=== PATIENT | female | born 1985 | race Two or more races ===

== ENCOUNTER 2019-07-24 18:30 | Emergency (ER) | payer MEDICAID ==
[~2019-07-24] VITALS: Ht 172.7 cm; Wt 75.0 kg
[2019-07-24] MEDS ORDERED: CEFTRIAXONE SODIUM 250 MG/VIAL IM ONE (21:15)
[2019-07-24] MEDS ORDERED: LIDOCAINE HCL 1% 20ML VIAL (Pyxis) INJ INFIL ONE (21:15)
[2019-07-24] MEDS ORDERED: AZITHROMYCIN 500 MG TABLET PO ONE (21:15)
[2019-07-24 21:35] LABS: CLARITY URINE CLEAR (CLEAR); COLOR URINE DARK YELLOW (YELLOW); KETONES URINE TRACE (NEGATIVE); LEUKOCYTE ESTERASE URINE NEGATIVE (NEGATIVE); NITRITE URINE NEGATIVE (NEGATIVE); OCCULT BLOOD URINE NEGATIVE (NEGATIVE); PH URINE 5.5 (4.5-8.0); PROTEIN URINE TRACE (NEGATIVE); SPECIFIC GRAVITY URINE 1.029 (1.005-1.030)
[2019-07-24 22:22] VITALS: BP 127/71
== END 2019-07-24 22:23 | disposition home or self-care (01) ==
LOC: ER 18:30
DX: A54.9 Gonococcal infection, unspecified (principal); Z20.2 Contact with and (suspected) exposure to infections with a predominantly sexual mode of transmission; Z11.3 Encounter for screening for infections with a predominantly sexual mode of transmission; N89.8 Other specified noninflammatory disorders of vagina; F17.200 Nicotine dependence, unspecified, uncomplicated; Z90.49 Acquired absence of other specified parts of digestive tract; Z98.84 Bariatric surgery status
CPT/HCPCS: 81003; 81025; 96372; 99283; J0696; J3490

== ENCOUNTER 2019-08-03 12:49 | Emergency (ER) | payer MEDICAID ==
[~2019-08-03] VITALS: Ht 172.7 cm; Wt 73.0 kg
[2019-08-03] MEDS ORDERED: HYDROCODONE/ACETAMINOPHEN 5/325MG TABLET PO ONE (14:30)
[2019-08-03 16:22] VITALS: BP 121/67
== END 2019-08-03 16:25 | disposition home or self-care (01) ==
LOC: ER 12:55
DX: N61.1 Abscess of the breast and nipple (principal); Z98.890 Other specified postprocedural states
CPT/HCPCS: 76641; 99284

== ENCOUNTER 2020-07-03 05:11 | Emergency (ER) | payer MEDICAID ==
[~2020-07-03] VITALS: Ht 172.7 cm; Wt 82.0 kg
[2020-07-03] MEDS ORDERED: FLUCONAZOLE 150MG TABLET PO SCH (06:30)
[2020-07-03] MEDS ORDERED: CEFTRIAXONE 1 G PREMIX 50 ML IV ONE (06:30)
[2020-07-03] MEDS ORDERED: FLUCONAZOLE 100MG TABLET PO ONE (06:30)
[2020-07-03] MEDS ORDERED: AZITHROMYCIN 500 MG TABLET PO ONE (06:30)
[2020-07-03 06:47] LABS: CLARITY URINE CLOUDY (CLEAR); COLOR URINE YELLOW (YELLOW); KETONES URINE NEGATIVE (NEGATIVE); LEUKOCYTE ESTERASE URINE 1+ (NEGATIVE); NITRITE URINE NEGATIVE (NEGATIVE); OCCULT BLOOD URINE NEGATIVE (NEGATIVE); PROTEIN URINE 1+ (NEGATIVE); SPECIFIC GRAVITY URINE 1.029 (1.005-1.030)
[2020-07-03] MEDS ORDERED: CEFTRIAXONE 1,000 MG in DEXTROSE 5% WATER 50 ML IV NR (07:15)
[2020-07-03 08:08] VITALS: BP 111/70
[2020-07-06 04:11] LABS: NEISSERIA GONORRHOEAE NAA Positive (Negative)
== END 2020-07-03 08:09 | disposition home or self-care (01) ==
LOC: ER 05:11
DX: Z20.2 Contact with and (suspected) exposure to infections with a predominantly sexual mode of transmission (principal); R10.2 Pelvic and perineal pain; E11.9 Type 2 diabetes mellitus without complications; Z98.84 Bariatric surgery status; Z98.890 Other specified postprocedural states
CPT/HCPCS: 81003; 87086; 87491; 87591; 96365; 99284; J0696; J7060

== ENCOUNTER 2021-04-04 21:11 | Emergency (ER) | payer MEDICAID ==
[~2021-04-04] VITALS: Ht 172.7 cm; Wt 82.0 kg
[2021-04-05] MEDS ORDERED: LIDOCAINE HCL 1% 20ML VIAL (Pyxis) INJ INFIL ONE (00:45)
[2021-04-05] MEDS ORDERED: CEFTRIAXONE SODIUM 500 MG/VIAL IM ONE (00:45)
[2021-04-05] MEDS ORDERED: DOXYCYCLINE HYCLATE 100MG CAPSULE PO ONE (00:45)
[2021-04-05] MEDS ORDERED: TOPUD MT (05:28)
[2021-04-05] MEDS ORDERED: DOXY100T2 MT (05:28)
[2021-04-05 05:47] LABS: CLARITY URINE CLOUDY (CLEAR); COLOR URINE YELLOW (YELLOW); KETONES URINE TRACE (NEGATIVE); LEUKOCYTE ESTERASE URINE 1+ (NEGATIVE); NITRITE URINE NEGATIVE (NEGATIVE); OCCULT BLOOD URINE NEGATIVE (NEGATIVE); PH URINE 5.5 (4.5-8.0); PROTEIN URINE TRACE (NEGATIVE); SPECIFIC GRAVITY URINE 1.026 (1.005-1.030)
[2021-04-05 06:30] VITALS: BP 142/78
[2021-04-05] MEDS ORDERED: METR500T MT (06:31)
[2021-04-07 04:07] LABS: NEISSERIA GONORRHOEAE NAA Negative (Negative)
== END 2021-04-05 06:43 | disposition home or self-care (01) ==
LOC: ER 21:11
DX: N73.9 Female pelvic inflammatory disease, unspecified (principal); E11.9 Type 2 diabetes mellitus without complications; Z20.2 Contact with and (suspected) exposure to infections with a predominantly sexual mode of transmission
CPT/HCPCS: 76856; 81003; 81025; 87210; 87491; 87591; 96372; 99284; J0696; J3490

== ENCOUNTER 2021-05-01 01:49 | Inpatient (IN) | payer MEDICAID ==
[~2021-05-01] VITALS: Ht 167.6 cm; Wt 82.7 kg
[~2021-05-01 01:49] MED LIST: DOXY100T2 MT; METR500T MT; TOPUD MT
[2021-05-01] MEDS ORDERED: ONDANSETRON HCL 4MG/2ML INJ IV STA (04:45)
[2021-05-01] MEDS ORDERED: SODIUM CHLORIDE 0.9% 1,000 ML IV ONE (04:45)
[2021-05-01] MEDS ORDERED: KETOROLAC 30MG/ML VIAL IV STA (04:45)
[2021-05-01 06:00] LABS: CHLORIDE 108 mEq/L (98-107)
[2021-05-01 06:05] LABS: BASOPHILS % 0.3 % (0.0-2.0); EOSINOPHILS % 0.3 % (0.0-5.0); LYMPHOCYTES % 34.5 % (20.0-50.0); MEAN CORPUSCULAR HEMOGLOBIN 18.6 pg (28.0-32.0); MEAN CORPUSCULAR VOLUME 62.3 fL (81.0-99.0); MEAN PLATELET VOLUME 8.4 fl (7.4-10.4); MONOCYTES % 7.3 % (2.0-8.0); NEUTROPHILS % 57.6 % (40.0-76.0); PLATELET 154 x1000/uL (130-400); RED BLOOD CELL COUNT 3.33 mill/uL (4.2-5.4); RED CELL DISTRIBUTION WIDTH 18.8 % (11.6-14.6)
[2021-05-01 06:07] LABS: PROTHROMBIN TIME 10.3 sec (9.6-11.0)
[2021-05-01 06:31] LABS: HCG SCREEN NEGATIVE
[2021-05-01 06:33] LABS: KETONES URINE TRACE (NEGATIVE); LEUKOCYTE ESTERASE URINE 2+ (NEGATIVE); NITRITE URINE NEGATIVE (NEGATIVE); OCCULT BLOOD URINE 2+ (NEGATIVE); PROTEIN URINE 2+ (NEGATIVE); SPECIFIC GRAVITY URINE 1.025 (1.005-1.030)
[2021-05-01] MEDS ORDERED: MORPHINE SULFATE 4 MG/ML CPJ (NOT FOR IM USE) IV ONE (06:45)
[2021-05-01 06:47] LABS: HEMOGLOBIN. 6.2 g/dL (12.0-16.0)
[2021-05-01 06:48] LABS: HEMATOCRIT. 20.7 % (36.0-48.0)
[2021-05-01] MEDS ORDERED: CEFTRIAXONE 1 G PREMIX 50 ML IV ONE (07:00)
[2021-05-01] MEDS ORDERED: POTASSIUM CHLORIDE 20MEQ TABLET SR PO NR (07:00)
[2021-05-01 07:03] LABS: CLARITY URINE HAZY (CLEAR); COLOR URINE DARK YELLOW (YELLOW)
[2021-05-01 07:14] LABS: TOTAL IRON BINDING CAPACITY 477 ug/dL (250-450)
[2021-05-01 07:47] LABS: PLATELET ESTIMATE NORMAL
[2021-05-01] MEDS ORDERED: CEFTRIAXONE 1 G PREMIX 50 ML IV SCH (09:00)
[2021-05-01 09:38] LABS: HEMOGLOBIN 5.3 g/dL (12.0-16.0)
[2021-05-01] MEDS: DOCUSATE SODIUM 100MG CAPSULE PO SCH (11:13)
[2021-05-01] MEDS: FERROUS SULFATE 325MG TABLET PO SCH ×2 (11:13→13:22)
[2021-05-01 17:21] LABS: UCG SCREEN NEGATIVE
[2021-05-01 17:31] LABS: *BARBITURATES SCREEN URINE NEGATIVE (NEGATIVE); *BENZODIAZEPINES SCREEN URINE NEGATIVE (NEGATIVE); *COCAINE SCREEN URINE NEGATIVE (NEGATIVE); CANNABINOID URINE SCREEN NEGATIVE (NEGATIVE); METHADONE URINE SCREEN NEGATIVE (NEGATIVE)
[2021-05-01 17:42] LABS: *AMPHETAMINES SCREEN URINE PRESUMTIVE POSITIVE (NEGATIVE); OPIATES URINE SCREEN PRESUMTIVE POSITIVE (NEGATIVE); PHENCYCLIDINE URINE SCREEN PRESUMTIVE POSITIVE (NEGATIVE)
[2021-05-01] MEDS ORDERED: NALOXONE HCL 0.4MG/ML VIAL IV PRN (17:45)
[2021-05-01] MEDS: MORPHINE SULFATE 2 MG/ML CPJ (NOT FOR IM USE) IV PRN ×2 (17:57→23:34)
[2021-05-01 22:10] VITALS: BP 101/63
[2021-05-01 22:19] VITALS: BP 108/57
[2021-05-01 22:40] VITALS: BP 108/66
[2021-05-01 23:46] VITALS: BP 104/72
[2021-05-02] VITALS: BP 104/72
[2021-05-02] MEDS ORDERED: *PATIENT'S OWN MEDICATION STORAGE XX SCH (00:45)
[2021-05-02 01:32] LABS: HEMATOCRIT 25.1 % (36.0-48.0); HEMOGLOBIN 7.7 g/dL (12.0-16.0)
[2021-05-02 01:42] LABS: PROTHROMBIN TIME 10.4 sec (9.6-11.0)
[2021-05-02 04:00] VITALS: BP 124/79
[2021-05-02] MEDS ORDERED: DEXTROSE 50% WATER 50ML SYRINGE IV PRN (05:45)
[2021-05-02] MEDS: MORPHINE SULFATE 2 MG/ML CPJ (NOT FOR IM USE) IV PRN ×2 (06:13→12:23)
[2021-05-02] MEDS: BLOOD SUGAR DIAGNOSTIC STRIP TEST SCH ×4 (07:34→21:40)
[2021-05-02] MEDS: INSULIN LISPRO 100 UNITS/ML SUBCUT SCH ×4 (07:47→21:00)
[2021-05-02 07:53] VITALS: BP 101/64
[2021-05-02] MEDS ORDERED: PNEUMOCOCCAL 23-VAL P-SAC VAC 0.5 ML IM ONE (08:00)
[2021-05-02 08:49] LABS: BASOPHILS % 0.2 % (0.0-2.0); EOSINOPHILS % 1.1 % (0.0-5.0); HEMATOCRIT. 23.6 % (36.0-48.0); HEMOGLOBIN. 7.4 g/dL (12.0-16.0); LYMPHOCYTES % 32.8 % (20.0-50.0); MEAN CORPUSCULAR HEMOGLOBIN 21.1 pg (28.0-32.0); MEAN CORPUSCULAR VOLUME 67.7 fL (81.0-99.0); MEAN PLATELET VOLUME 8.5 fl (7.4-10.4); MONOCYTES % 10.1 % (2.0-8.0); NEUTROPHILS % 55.8 % (40.0-76.0); PLATELET 114 x1000/uL (130-400); RED BLOOD CELL COUNT 3.49 mill/uL (4.2-5.4); RED CELL DISTRIBUTION WIDTH 25.2 % (11.6-14.6)
[2021-05-02 08:58] LABS: CHLORIDE 109 mEq/L (98-107)
[2021-05-02] MEDS: CEFTRIAXONE 1,000 MG in DEXTROSE 5% WATER 50 ML IV SCH (09:11)
[2021-05-02] MEDS: FERROUS SULFATE 325MG TABLET PO SCH ×3 (09:12→18:16)
[2021-05-02] MEDS: DOCUSATE SODIUM 100MG CAPSULE PO SCH ×2 (09:12→18:16)
[2021-05-02] MEDS ORDERED: INFLUENZA VACCINE 05/PF 0.5 ML SYRINGE IM ONE (10:00)
[2021-05-02] MEDS ORDERED: POTASSIUM CHLORIDE 20MEQ TABLET SR PO NR (11:00)
[2021-05-02] MEDS: ONDANSETRON HCL 4MG/2ML INJ IV PRN ×2 (11:22→18:16)
[2021-05-02] MEDS ORDERED: DOCU-150 PO (11:51)
[2021-05-02] MEDS ORDERED: FERR-63 PO (11:51)
[2021-05-02] MEDS ORDERED: LEVO500T89 MT (11:51)
[2021-05-02 12:00] VITALS: BP 95/67
[2021-05-02 16:00] VITALS: BP 121/81
[2021-05-02] MEDS: TRAMADOL 50MG TABLET PO PRN (18:56)
[2021-05-02 20:00] VITALS: BP 117/83
[2021-05-03] VITALS: BP 126/82
[2021-05-03] MEDS: TRAMADOL 50MG TABLET PO PRN ×3 (01:13→17:59)
[2021-05-03 04:00] VITALS: BP 121/90
[2021-05-03] MEDS: BLOOD SUGAR DIAGNOSTIC STRIP TEST SCH ×4 (07:46→20:46)
[2021-05-03] MEDS: INSULIN LISPRO 100 UNITS/ML SUBCUT SCH ×4 (07:47→20:51)
[2021-05-03 08:00] VITALS: BP 122/78
[2021-05-03 08:18] LABS: BASOPHILS % 0.3 % (0.0-2.0); EOSINOPHILS % 1.4 % (0.0-5.0); HEMATOCRIT. 25.4 % (36.0-48.0); HEMOGLOBIN. 7.8 g/dL (12.0-16.0); LYMPHOCYTES % 31.7 % (20.0-50.0); MEAN CORPUSCULAR HEMOGLOBIN 21.1 pg (28.0-32.0); MEAN CORPUSCULAR VOLUME 68.7 fL (81.0-99.0); MEAN PLATELET VOLUME 8.5 fl (7.4-10.4); MONOCYTES % 10.5 % (2.0-8.0); NEUTROPHILS % 56.1 % (40.0-76.0); PLATELET 143 x1000/uL (130-400); RED CELL DISTRIBUTION WIDTH 26.2 % (11.6-14.6)
[2021-05-03 08:54] LABS: CHLORIDE 109 mEq/L (98-107)
[2021-05-03] MEDS: CEFTRIAXONE 1,000 MG in DEXTROSE 5% WATER 50 ML IV SCH (09:33)
[2021-05-03] MEDS: ONDANSETRON HCL 4MG/2ML INJ IV PRN (09:33)
[2021-05-03] MEDS: DOCUSATE SODIUM 100MG CAPSULE PO SCH ×2 (09:33→17:59)
[2021-05-03] MEDS: FERROUS SULFATE 325MG TABLET PO SCH ×3 (09:33→17:59)
[2021-05-03 12:00] VITALS: BP 111/60
[2021-05-03 16:00] VITALS: BP 107/66
[2021-05-03] MEDS: MEROPENEM 1,000 MG in SODIUM CHLORIDE 0.9% 100 ML IV SCH (17:59)
[2021-05-03 20:00] VITALS: BP 120/84
[2021-05-04] VITALS: BP 122/84
[2021-05-04] MEDS: MEROPENEM 1,000 MG in SODIUM CHLORIDE 0.9% 100 ML IV SCH ×3 (03:43→17:51)
[2021-05-04] MEDS: TRAMADOL 50MG TABLET PO PRN ×2 (03:43→09:49)
[2021-05-04 04:00] VITALS: BP 107/59
[2021-05-04] MEDS: BLOOD SUGAR DIAGNOSTIC STRIP TEST SCH ×4 (07:20→21:00)
[2021-05-04] MEDS: INSULIN LISPRO 100 UNITS/ML SUBCUT SCH ×4 (07:50→21:00)
[2021-05-04 08:00] VITALS: BP 107/68
[2021-05-04] MEDS: FERROUS SULFATE 325MG TABLET PO SCH ×3 (09:48→17:51)
[2021-05-04] MEDS: DOCUSATE SODIUM 100MG CAPSULE PO SCH ×2 (09:49→17:51)
[2021-05-04 12:00] VITALS: BP 113/70
[2021-05-04 16:00] VITALS: BP 110/70
[2021-05-04 17:35] LABS: BASOPHILS % 0.3 % (0.0-2.0); HEMATOCRIT. 27.6 % (36.0-48.0); HEMOGLOBIN. 8.6 g/dL (12.0-16.0); LYMPHOCYTES % 20.3 % (20.0-50.0); MEAN CORPUSCULAR HEMOGLOBIN 21.2 pg (28.0-32.0); MEAN PLATELET VOLUME 8.5 fl (7.4-10.4); MONOCYTES % 8.6 % (2.0-8.0); NEUTROPHILS % 69.8 % (40.0-76.0); PLATELET 229 x1000/uL (130-400); RED BLOOD CELL COUNT 4.05 mill/uL (4.2-5.4); RED CELL DISTRIBUTION WIDTH 26.8 % (11.6-14.6)
[2021-05-04 17:40] LABS: CHLORIDE 106 mEq/L (98-107)
[2021-05-04 20:00] VITALS: BP 130/82
[2021-05-05] VITALS: BP 102/59
[2021-05-05] MEDS: MEROPENEM 1,000 MG in SODIUM CHLORIDE 0.9% 100 ML IV SCH ×3 (03:21→17:16)
[2021-05-05 04:00] VITALS: BP 104/69
[2021-05-05] MEDS: ONDANSETRON HCL 4MG/2ML INJ IV PRN (04:27)
[2021-05-05] MEDS: INSULIN LISPRO 100 UNITS/ML SUBCUT SCH ×4 (06:42→17:16)
[2021-05-05] MEDS: BLOOD SUGAR DIAGNOSTIC STRIP TEST SCH ×4 (06:42→21:00)
[2021-05-05 08:00] VITALS: BP 110/68
[2021-05-05 08:03] LABS: BASOPHILS % 0.2 % (0.0-2.0); HEMATOCRIT. 28.4 % (36.0-48.0); HEMOGLOBIN. 8.9 g/dL (12.0-16.0); LYMPHOCYTES % 17.9 % (20.0-50.0); MEAN CORPUSCULAR HEMOGLOBIN 21.3 pg (28.0-32.0); MEAN CORPUSCULAR VOLUME 68.3 fL (81.0-99.0); MEAN PLATELET VOLUME 7.7 fl (7.4-10.4); MONOCYTES % 10.5 % (2.0-8.0); NEUTROPHILS % 70.4 % (40.0-76.0); PLATELET 281 x1000/uL (130-400); RED BLOOD CELL COUNT 4.15 mill/uL (4.2-5.4); RED CELL DISTRIBUTION WIDTH 28.2 % (11.6-14.6)
[2021-05-05 08:14] LABS: CHLORIDE 106 mEq/L (98-107)
[2021-05-05] MEDS: DOCUSATE SODIUM 100MG CAPSULE PO SCH ×2 (09:12→17:16)
[2021-05-05] MEDS: FERROUS SULFATE 325MG TABLET PO SCH ×3 (09:12→17:16)
[2021-05-05 12:00] VITALS: BP 103/64
[2021-05-05 16:00] VITALS: BP 127/80
[2021-05-05 20:00] VITALS: BP 123/76
[2021-05-06] VITALS: BP 109/64
[2021-05-06] MEDS: MEROPENEM 1,000 MG in SODIUM CHLORIDE 0.9% 100 ML IV SCH ×3 (01:12→17:48)
[2021-05-06 04:00] VITALS: BP 107/62
[2021-05-06] MEDS: BLOOD SUGAR DIAGNOSTIC STRIP TEST SCH (07:45)
[2021-05-06] MEDS: INSULIN LISPRO 100 UNITS/ML SUBCUT SCH (07:45)
[2021-05-06 08:00] VITALS: BP 105/61
[2021-05-06] MEDS: DOCUSATE SODIUM 100MG CAPSULE PO SCH ×2 (08:26→17:48)
[2021-05-06] MEDS: FERROUS SULFATE 325MG TABLET PO SCH ×3 (08:26→17:48)
[2021-05-06 12:00] VITALS: BP 110/71
[2021-05-06 16:00] VITALS: BP 105/66
[2021-05-06 17:56] VITALS: BP 110/66
[2021-05-06] MEDS: TRAMADOL 50MG TABLET PO PRN (17:56)
[2021-05-09 15:06] LABS: HIV 1 ABS Indeterminate (Negative); HIV 2 ABS Negative (Negative); HIV SCREEN 4G Reactive (Non Reactive); INTERPRETATION HIV-1 Indet. (.)
== END 2021-05-06 18:45 | disposition left against medical advice (07) | DRG 720 ==
LOC: ER 01:49 → MICUSO 07:35 → EDBEDREQSVC 10:28 → 6EST 20:06
PROVIDERS: ADMIT Internal Medicine; ATTEND Internal Medicine
PROC: 30233N1 Transfusion of Nonautologous Red Blood Cells into Peripheral Vein, Percutaneous Approach (ICD-10-PCS; principal; 2021-05-01)
DX: A41.51 Sepsis due to Escherichia coli [E. coli] (principal); E11.649 Type 2 diabetes mellitus with hypoglycemia without coma; E44.0 Moderate protein-calorie malnutrition; E87.8 Other disorders of electrolyte and fluid balance, not elsewhere classified; N12 Tubulo-interstitial nephritis, not specified as acute or chronic; D50.9 Iron deficiency anemia, unspecified; F16.90 Hallucinogen use, unspecified, uncomplicated; N39.0 Urinary tract infection, site not specified; E87.6 Hypokalemia; D25.9 Leiomyoma of uterus, unspecified; N92.0 Excessive and frequent menstruation with regular cycle; N83.201 Unspecified ovarian cyst, right side; Z16.12 Extended spectrum beta lactamase (ESBL) resistance; Z20.822 Contact with and (suspected) exposure to COVID-19; Z68.29 Body mass index [BMI] 29.0-29.9, adult
CPT/HCPCS: 36415; 76856; 80048; 80053; 80305; 81003; 81025; 82962; 83540; 83550; 84703; 85014; 85018; 85025; 85049; 85384; 86701; 86702; 86850; 86900; 86920; 87077; 87186; 87389; 87426; 87535; 90686; 90732; 99285; J0696; J1885; J2185; J2270; J2405; J7030; J7040; J7050; J7060; P9016

== ENCOUNTER 2021-12-10 05:52 | Emergency (ER) | payer MEDICAID, OTHER ==
[~2021-12-10] VITALS: Ht 172.7 cm; Wt 80.4 kg
[~2021-12-10 05:52] MED LIST changes: +DOCU-150 PO; +FERR-63 PO; +LEVO500T89 MT
[2021-12-10 05:54] VITALS: BP 131/73
[2021-12-10] MEDS ORDERED: LIDOCAINE HCL/PF 1% 10 MG/ML 5ML VIAL INFIL ONE (07:00)
== END 2021-12-10 09:54 | disposition home or self-care (01) ==
LOC: ER 06:03
DX: S01.111A Laceration without foreign body of right eyelid and periocular area, initial encounter (principal); E11.9 Type 2 diabetes mellitus without complications; Y04.0XXA Assault by unarmed brawl or fight, initial encounter; Y93.89 Activity, other specified; Y92.018 Other place in single-family (private) house as the place of occurrence of the external cause
CPT/HCPCS: 12013; 99282; J3490

== ENCOUNTER 2023-09-06 02:29 | Emergency (ER) | payer OTHER ==
[~2023-09-06] VITALS: Ht 172.7 cm; Wt 84.0 kg
[~2023-09-06 02:29] MED LIST changes: +LEVO-65 MT; -LEVO500T89 MT
[2023-09-06 02:46] VITALS: BP 133/71; RESP 20; TEMP 98.1; O2SAT 100
[2023-09-06 02:47] VITALS: PULSE 118
[2023-09-06] MEDS ORDERED: ERYT1OIN6 EACHEYE (03:37)
[2023-09-06] MEDS ORDERED: ACET-2708 MT (03:37)
== END 2023-09-06 03:59 | disposition home or self-care (01) ==
LOC: ER 02:29
DX: H10.022 Other mucopurulent conjunctivitis, left eye (principal); E11.9 Type 2 diabetes mellitus without complications; Z98.890 Other specified postprocedural states; Z90.49 Acquired absence of other specified parts of digestive tract; Z00.00 Encounter for general adult medical examination without abnormal findings
CPT/HCPCS: 99283

== ENCOUNTER 2024-08-18 08:32 | Emergency (ER) | payer OTHER ==
[~2024-08-18] VITALS: Ht 172.7 cm; Wt 81.6 kg
[~2024-08-18 08:32] MED LIST changes: +ACET-2708 MT; -DOCU-150 PO; +DOCU-422 PO; +ERYT1OIN6 EACHEYE
[2024-08-18 08:43] VITALS: O2SAT 100
[2024-08-18 09:46] LABS: BASOPHILS % 0.2 % (0.0-2.0); EOSINOPHILS % 2.4 % (0.0-5.0); HEMATOCRIT. 27.1 % (36.0-48.0); HEMOGLOBIN. 7.7 g/dL (12.0-16.0); LYMPHOCYTES % 16.8 % (20.0-50.0); MEAN CORPUSCULAR HEMOGLOBIN 17.4 pg (28.0-32.0); MEAN CORPUSCULAR HGB CONC 28.4 g/dL (31.0-37.0); MEAN CORPUSCULAR VOLUME 61.4 fL (81.0-99.0); MEAN PLATELET VOLUME 8.3 fl (7.4-10.4); MONOCYTES % 4.4 % (2.0-8.0); NEUTROPHILS % 76.2 % (40.0-76.0); PLATELET 278 x1000/uL (130-400); RED BLOOD CELL COUNT 4.41 mill/uL (4.2-5.4); RED CELL DISTRIBUTION WIDTH 18.9 % (11.6-14.6)
[2024-08-18] MEDS: ONDANSETRON 4MG ODT PO ONE (09:46)
[2024-08-18] MEDS: MAGNESIUM/ALUMINUM HYDROXIDE/SIMETHICONE 30ML UDC PO ONE (09:47)
[2024-08-18] MEDS: ACETAMINOPHEN 325MG TABLET PO ONE (09:47)
[2024-08-18 09:48] LABS: ADD RBC MORPHOLOGY YES; DIFFERENTIAL COMMENT 1
[2024-08-18 09:56] LABS: CHLORIDE 109 mEq/L (98-107); POTASSIUM 3.5 mEq/L (3.5-5.1); SODIUM 138 mEq/L (136-145)
[2024-08-18 09:57] LABS: CARBON DIOXIDE 21 mEq/L (21-32)
[2024-08-18 09:58] LABS: CALCIUM 9.1 mg/dL (8.7-10.4)
[2024-08-18 10:02] LABS: CREATININE 0.8 mg/dL (0.6-1.0); GLUCOSE 101 mg/dL (70-105)
[2024-08-18 10:03] LABS: CLARITY URINE CLOUDY (CLEAR); COLOR URINE YELLOW (YELLOW); GLUCOSE URINE NEGATIVE (NEGATIVE)
[2024-08-18 10:03] LABS: UREA NITROGEN BLOOD 9 mg/dL (9-23)
[2024-08-18 10:04] LABS: SPECIFIC GRAVITY URINE 1.026 (1.005-1.030)
[2024-08-18 10:05] LABS: KETONES URINE TRACE (NEGATIVE); PROTEIN URINE 1+ (NEGATIVE)
[2024-08-18 10:06] LABS: LEUKOCYTE ESTERASE URINE NEGATIVE (NEGATIVE); NITRITE URINE NEGATIVE (NEGATIVE); OCCULT BLOOD URINE NEGATIVE (NEGATIVE); UROBILINOGEN URINE 0.2 E.U./dL (0.2-1.0)
[2024-08-18 10:10] LABS: SQUAMOUS EPITHELIAL CELL URINE 3+ /lpf (RARE/1+)
[2024-08-18 10:11] LABS: BACTERIA URINE 2+; MUCUS URINE 1+ /lpf (< = 2+)
[2024-08-18 10:12] LABS: WBC URINE 0-2 /hpf (0-2)
[2024-08-18 10:13] LABS: TRICHOMONAS URINE 1+
[2024-08-18 10:14] LABS: RBC URINE NONE SEEN /hpf (0-2)
[2024-08-18 10:55] LABS: ANISOCYTOSIS 2+; HYPOCHROMASIA 1+; MICROCYTOSIS 2+; PLATELET ESTIMATE NORMAL
[2024-08-18] MEDS: HYDROCODONE/ACETAMINOPHEN 5/325MG TABLET PO ONE (14:56)
[2024-08-18 15:48] LABS: HCG SCREEN NEGATIVE
[2024-08-18] MEDS ORDERED: PROM25TA13 MT (16:24)
[2024-08-18] MEDS ORDERED: TOPUD MT (16:24)
[2024-08-18] MEDS ORDERED: MAG-55 MT (16:24)
[2024-08-18] MEDS ORDERED: AZIT250T12 MT (16:24)
[2024-08-18 16:39] VITALS: BP 102/61; PULSE 82; RESP 16; TEMP 36.61404; O2SAT 100
== END 2024-08-18 16:53 | disposition home or self-care (01) ==
LOC: ER 08:37
DX: K52.9 Noninfective gastroenteritis and colitis, unspecified (principal); E11.9 Type 2 diabetes mellitus without complications; Z87.440 Personal history of urinary (tract) infections; Z90.49 Acquired absence of other specified parts of digestive tract; Z98.84 Bariatric surgery status
CPT/HCPCS: 80048; 81003; 81025; 84703; 85025; 36415; 74176; 99284; Q0162; Z7610